=== PATIENT | male | born 2000 | race African-American/Black ===

== ENCOUNTER → 2022-04-22 12:33 | Outpatient (CLI) | payer OTHER, SELFPAY ==
--- NOTE | ~2022-04-22 | XR_ITS ---
XR hand RT 2V DATE: 04/22/2022 12:52 INDICATION: Second digit injury, pain TECHNIQUE: 3 views of right hand COMPARISON: None FINDINGS: There is a comminuted intra-articular fracture of the base of the proximal phalanx of the s econd digit, extending into the proximal shaft medially. There is minimal displacement or angulation deformity. No other recent fracture or dislocation. No periosteal reaction or bone destruction. IMPRESSION: Comminuted intra-articular fracture of the base of the proximal phalanx of the second dig it Reviewed, dictated and finalized at location B. IMPRESSION: Comminuted intra-articular fracture of the base of the proximal pha lanx of the second digit
== END ==
PROVIDERS: PCP Plastic Surgery; Visit Provider Plastic Surgery
DX: S62.610A Displaced fracture of proximal phalanx of right index finger, initial encounter for closed fracture (principal); X58.XXXA Exposure to other specified factors, initial encounter
CPT/HCPCS: 73120